=== PATIENT | male | born 1980 | race Caucasian/White ===

== ENCOUNTER 2019-11-20 15:01 | Emergency (ER) | payer BC, OTHER ==
[2019-11-20 15:30] VITALS: BP 168/102
--- NOTE | 2019-11-20 15:40 | UC ---
General HPI - HPI Summary HPI Summary: Tailbone injury 1899 last night when pt. slipped on wooden steps and "road down the last 3." - History of Current Complaint Chief Complaint: UCBackPain Stated Complaint: INJURIED TAIL BONE Time Seen by Provider: 11/20/19 15:39 Hx Obtained From: Patient Onset/Duration: Sudden Onset, Lasting Hours Timing: Constant Onset Severity: Moderate Current Severity: Moderate Pain Intensity: 5 - Allergy/Home Medications Allergies/Adverse Reactions: Allergies Allergy/AdvReac Type Severity Reaction Status Date / Time No Known Allergies Allergy Verified 11/20/19 15:22 Home Medications: Home Medications Omeprazole CAP (NF) [PriLOSEC CAP*] 20 mg PO DAILY 08/10/15 [History Confirmed 11/20/19] Acetaminophen TAB* [Tylenol TAB*] 650 mg PO Q4H PRN 11/20/19 [History Confirmed 11/20/19] Ibuprofen TAB* [Advil TAB*] 800 mg PO Q6H PRN 11/20/19 [History Confirmed ] Zolpidem Tartrate [Ambien] 5 mg PO BEDTIME PRN 11/20/19 [History Confirmed 11/20] PMH/Surg Hx/FS Hx/Imm Hx Previously Healthy: Yes - Surgical History Surgical History: Yes Surgery Procedure, Year, and Place: 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 - Diagnoses Provider Diagnosis: Contusion Discharge ED - Sign-Out/Discharge Documenting (check all that apply): Patient Departure All imaging exams completed and their final reports reviewed: No Studies - Discharge Plan Condition: Stable Disposition: HOME Patient Education Materials: Contusion in Adults (ED) Referrals: Balbir Valentin MD [Primary Care Provider] - Keith Nelson MD [Medical Doctor] - Additional Instructions: 1. ibuprofen for pain 2. Soak in warm epsom salt bath 3. sit on soft cushion and get up and move often. - Billing Disposition and Condition Condition: STABLE Disposition: Home - Attestation Statements Provider Attestation: I was available for consult. This patient was seen by the JALEEL. The patient was not presented to, seen by, or examined by me. -Jesica
== END 2019-11-20 16:39 | disposition home or self-care (01) ==
LOC: UCCORT 15:01
DX: S30.0XXA Contusion of lower back and pelvis, initial encounter (principal); W18.40XA Slipping, tripping and stumbling without falling, unspecified, initial encounter; Y92.9 Unspecified place or not applicable
CPT/HCPCS: 72220; 99201; G0463